=== PATIENT | female | born 1960 | race Caucasian/White ===

== ENCOUNTER 2020-06-15 06:17 | Inpatient (IN) ==
[2020-06-15] MEDS ORDERED: CeFAZolin Syr 2,000MG/20 ML 2,000 MG/20 ML SYRINGE IVPB ONE (06:38)
[2020-06-15] MEDS ORDERED: Ringers Solution, Lactated 1,000 ML IVC SCH (06:45)
[2020-06-15] MEDS ORDERED: Famotidine 20 MG/2 ML VIAL IVP ONE (07:02)
[2020-06-15] MEDS ORDERED: *HR* OxyCODONE Immed Rel 5 MG TABLET PO PRN (07:02)
[2020-06-15] MEDS ORDERED: Albuterol 2.5 MG/3 ML NEBULIZER IH PRN (07:02)
[2020-06-15] MEDS ORDERED: *HR* Promethazine 25 MG/ML VIAL IVP PRN (07:02)
[2020-06-15] MEDS ORDERED: Ketorolac 30 MG/ML VIAL IVP ONE (07:02)
[2020-06-15] MEDS ORDERED: *HR* Metoprolol 5 MG/5 ML VIAL IVP PRN (07:02)
[2020-06-15] MEDS ORDERED: *HR* FentaNYL (PF) 100 MCG/2 ML VIAL IVP PRN (07:02)
[2020-06-15] MEDS ORDERED: Acetaminophen IV 1,000 MG/100 ML INFUS..BTL IVPB ONE (07:02)
[2020-06-15] MEDS ORDERED: Gabapentin 300 MG CAPSULE PO ONE (07:02)
[2020-06-15] MEDS ORDERED: Ondansetron 4 MG/2 ML VIAL IVP ONE (07:03)
[2020-06-15] MEDS ORDERED: Lidocaine -MPF 4% 5 ML AMPUL ONE (07:09)
[2020-06-15] MEDS ORDERED: *HR* Midazolam HCl 2 MG/2 ML VIAL ONE (07:12)
[2020-06-15] MEDS ORDERED: *HR* HYDROMORPHONE 2 MG/ML VIAL ONE (07:13)
[2020-06-15] MEDS ORDERED: *HR* Rocuronium Bromide 50 MG/5 ML VIAL ONE (07:14)
[2020-06-15] MEDS ORDERED: Lidocaine -MPF 2% 2 ML VIAL ONE (07:14)
[2020-06-15] MEDS ORDERED: Dexamethasone 4 MG/ML VIAL ONE (07:14)
[2020-06-15] MEDS ORDERED: *HR* Succinylcholine 200 MG/10 ML VIAL IVP ONE (07:14)
[2020-06-15] MEDS ORDERED: *HR* Vasopressin 20 UNIT/ML VIAL ONE (07:26)
[2020-06-15] MEDS ORDERED: *HR* PHENYLEPHRINE 1,000 MCG/10 ML SYRINGE IVP ONE (08:45)
[2020-06-15] MEDS ORDERED: Naloxone 0.4 MG/ML INJ IVP PRN (10:35)
[2020-06-15] MEDS: Ipratropium/Albuterol Neb 3 ML IH SCH ×3 (11:35→20:05)
[2020-06-15] MEDS: Ketorolac 15 MG/ML VIAL IVP SCH ×2 (12:23→16:42)
[2020-06-15] MEDS: 0.9 % Sodium Chloride 1,000 ML IVC SCH (12:23)
[2020-06-15] MEDS: *HR* Heparin 5,000 UNIT/ML VIAL SQ SCH ×2 (14:56→20:56)
[2020-06-15] MEDS: *HR* HYDROcodone/Acet 5/325 mg TABLET PO PRN (14:56)
[2020-06-15] MEDS: Gabapentin 300 MG CAPSULE PO SCH ×2 (14:57→20:56)
[2020-06-15] MEDS: Famotidine 20 MG TABLET PO SCH (16:42)
[2020-06-15] MEDS: Sennosides/Docusate Sodium TABLET PO SCH (20:56)
[2020-06-16] MEDS: Ipratropium/Albuterol Neb 3 ML IH SCH ×6 (00:13→19:55)
[2020-06-16] MEDS: Ketorolac 15 MG/ML VIAL IVP SCH ×5 (00:15→23:36)
[2020-06-16] MEDS: 0.9 % Sodium Chloride 1,000 ML IVC SCH (00:20)
[2020-06-16 05:18] LABS: Hematocrit 38.3 % (35.3-44.9); Hemoglobin 12.5 g/dL (11.5-15.4); Mean Corpuscular HGB Conc 32.6 g/dL (31.6-35.5); Platelet Count 235 K/mcL (140-400); Red Blood Count 4.03 M/mcL (3.82-4.97); Red Cell Distribution Width 13.3 % (11.5-14.5); White Blood Count 11.9 K/mcL (4.3-11.1)
[2020-06-16 05:38] LABS: % Iron Saturation 13 % (15-50); BUN/Creatinine Ratio 16 (6-26); Blood Urea Nitrogen 10 mg/dL (8-23); Calcium 8.4 mg/dL (8.6-10.3); Carbon Dioxide 22 mEq/L (23-29); Chloride 106 mEq/L (98-107); Glucose 104 mg/dL (70-105); Iron 36 mcg/dL (50-170); Magnesium 1.6 mg/dL (1.6-2.6); Osmolality,Calculated 279 (280-300); Potassium 4.1 mEq/L (3.5-5.1); Sodium 135 mEq/L (136-145); Transferrin 204 mg/dL (203-362); eGFR For African Americans > 60 (> 60); eGFR For Non-African Americans > 60 (> 60)
[2020-06-16] MEDS: *HR* Heparin 5,000 UNIT/ML VIAL SQ SCH ×3 (06:07→20:23)
[2020-06-16] MEDS: Sennosides/Docusate Sodium TABLET PO SCH ×2 (08:13→20:25)
[2020-06-16] MEDS: Gabapentin 300 MG CAPSULE PO SCH ×3 (08:13→20:24)
[2020-06-16] MEDS: Famotidine 20 MG TABLET PO SCH ×2 (08:13→17:20)
[2020-06-16] MEDS: *HR* HYDROcodone/Acet 5/325 mg TABLET PO PRN ×2 (08:20→23:48)
[2020-06-16] MEDS ORDERED: Iron Sucrose Complex 400 MG in 0.9 % Sodium Chloride 250 ML IVPB ONE (09:51)
[2020-06-16] MEDS ORDERED: Thiamine (B-1) 200 MG/2 ML VIAL IM ONE (09:52)
[2020-06-16] MEDS ORDERED: Folic Acid 1 MG in 0.9 % Sodium Chloride 50 ML IVPB ONE (09:52)
[2020-06-17] MEDS: Ipratropium/Albuterol Neb 3 ML IH SCH ×7 (00:04→23:27)
[2020-06-17] MEDS: *HR* Heparin 5,000 UNIT/ML VIAL SQ SCH ×3 (06:16→20:35)
[2020-06-17] MEDS: Ketorolac 15 MG/ML VIAL IVP SCH ×4 (06:16→23:13)
[2020-06-17] MEDS: Sennosides/Docusate Sodium TABLET PO SCH ×2 (07:47→20:35)
[2020-06-17] MEDS: *HR* HYDROcodone/Acet 5/325 mg TABLET PO PRN ×2 (07:48→19:35)
[2020-06-17] MEDS: Gabapentin 300 MG CAPSULE PO SCH ×3 (07:48→20:35)
[2020-06-17] MEDS: Famotidine 20 MG TABLET PO SCH ×2 (07:48→15:12)
[2020-06-18] MEDS: Ipratropium/Albuterol Neb 3 ML IH SCH ×3 (03:54→11:26)
[2020-06-18] MEDS: Ketorolac 15 MG/ML VIAL IVP SCH (05:25)
[2020-06-18] MEDS: *HR* Heparin 5,000 UNIT/ML VIAL SQ SCH (05:28)
[2020-06-18] MEDS: Gabapentin 300 MG CAPSULE PO SCH (07:14)
[2020-06-18] MEDS: Famotidine 20 MG TABLET PO SCH (07:14)
[2020-06-18] MEDS: Sennosides/Docusate Sodium TABLET PO SCH (07:14)
[2020-06-18] MEDS: *HR* HYDROcodone/Acet 5/325 mg TABLET PO PRN (07:16)
[2020-06-18 11:01] VITALS: BP 155/88
== END 2020-06-18 12:03 | disposition home or self-care (01) | DRG 168 ==
LOC: SAMDAY 06:17 → 2NNU 10:50
PROVIDERS: ADMIT Thoracic Surgery (Cardiothoracic Vascular Surgery); ATTEND Thoracic Surgery (Cardiothoracic Vascular Surgery)